=== PATIENT | male | born 1970 | race African-American/Black ===

== ENCOUNTER 2020-03-06 08:13 | Day surgery (SDC) | payer BC, SELFPAY ==
--- NOTE | 2020-03-06 08:28 | CT_ITS ---
EXAMINATION: CT ABDOMEN AND PELVIS WITHOUT CONTRAST CLINICAL INFORMATION: Left flank pain. COMPARISON: Ultrasound abdomen and pelvis 06/09/2017 TECHNIQUE: Multidetector volumetric imaging was performed from the superior aspect of the liver through the pubic symphysis. Sagittal and coronal reformatted images were obtained on the technologist's workstation. This CT examination was performed using dose optimization techniques as appropriate, variously including the following: *Automated exposure control *Adjustment of mA and/or kV according to patient size (this includes techniques or standardized protocols for targeted exams where dose is matched to indication/reason for exam; i.e. extremities or head) *Use of iterative reconstruction technique DLP: 930 mGy-cm FINDINGS: LUNG BASES: The visualized lung bases are unremarkable. LIVER, GALLBLADDER, AND BILIARY TREE: The liver is normal in size, shape, and attenuation. No focal hepatic lesion or biliary ductal dilatation is present. The gallbladder is unremarkable with no evidence of radiopaque gallstones, gallbladder wall thickening, or obvious pericholecystic inflammatory changes. PANCREAS: Unremarkable. SPLEEN: Unremarkable. ADRENAL GLANDS: There is a bilobed right adrenal lesion measuring 2.8 x 1.5 a 2.3 cm and approximately 13 Hounsfield units likely a small cyst. Left adrenal gland is normal. KIDNEYS AND URETERS: The right kidney is normal size, shape and attenuation. There is a 4 mm obstructive radiopaque calculi left proximal ureter with mild hydroureteronephrosis and enlargement of left kidney. There is mild perinephric stranding. No additional radiopaque renal calculi seen. BLADDER: Unremarkable. GASTROINTESTINAL TRACT: There is scattered stool and gas seen throughout the colon without any significant distention. The appendix is normal caliber.. The small bowel loops are normal caliber. Ileocecal junction is normal. ABDOMINAL WALL: No significant hernia is appreciated. LYMPH NODES: Normal. VASCULAR: Unremarkable. PELVIC VISCERA: The prostate gland is normal size. No free fluid seen. No abnormal lymph nodes. OSSEOUS STRUCTURES: Unremarkable. IMPRESSION: 4 mm obstructive radiopaque calculi left proximal ureter with mild hydroureteronephrosis Bilobed cyst right adrenal gland
--- NOTE | 2020-03-06 08:28 | ED.ABDPAIN ---
HPI - Abdominal Pain General Chief Complaint: Abdominal Pain Stated Complaint: abd pain Time Seen by Provider: 03/06/20 08:18 Source: patient Mode of arrival: ambulatory Limitations: no limitations History of Present Illness MD elicited complaint: flank pain Pertinent past history: none Onset (ago): hour(s) (6) Pain Consistency: constant Location: L flank Severity: severe Quality: sharp Radiation: none Migration to: no migration Exacerbating factors: nothing Relieving factors: nothing Associated symptoms: nausea, vomiting and hematuria Related Data Previous Rx's Medication Instructions Recorded hydrocodone-acetaminophen 1 tab PO Q6H 7 Days #28 tab 03/06/20 phenazopyridine [Pyridium] 100 mg PO TID PRN 4 Days #12 tab 03/06/20 tamsulosin 0.4 mg PO BEDTIME #14 cap 03/06/20 Allergies Allergy/AdvReac Type Severity Reaction Status Date / Time doxycycline [DOXYCYCLINE] AdvReac Unknown HEARTBURN Verified 03/06/20 08:32 Review of Systems Review of Systems Constitutional : No Fever, No Chills ENT/Mouth : No sore throat Eyes: No Eye Pain, No Swelling, No Redness Cardiovascular : No Chest Pain, No SOB Respiratory : No Cough, No Sputum, No Wheezing Gastrointestinal : positive Nausea, positive Vomiting, No Diarrhea, positive abdominal pain Genitourinary : no Dysuria, no urinary frequency, positive Hematuria, positive Flank Pain, positive hesitancy Musculoskeletal : No joint pain, No Myalgias Skin : No Skin Lesions, No rash Neuro : No Weakness, No Numbness, No Headache Psych : No Anxiety/Panic, No Depression Heme/Lymph: No Bruising, No Lymphadenopathy Endocrine : No Polyuria, No Polydipsia All other systems reviewed and are negative Physical Exam Vital Signs: Vital Signs: Vital Signs Temp Pulse Resp BP Pulse Ox 03/06/20 14:10 97.2 F 110 H 20 139/78 98 03/06/20 13:58 98.1 F 110 H 18 139/78 99 03/06/20 12:00 88 16 116/75 96 03/06/20 10:00 82 16 110/74 98 03/06/20 08:58 16 03/06/20 08:29 97.5 F 70 20 134/80 99 Body Mass Index 33.3 Appearance: Alert. Oriented X3. mild acute distress. active vomiting Eyes: Pupils equal, round and reactive to light. ENT: Pharynx normal. Neck: Normal inspection. Neck supple. CVS: Normal heart rate and rhythm. Pulses normal. Respiratory: No respiratory distress. Breath sounds normal. Abdomen: Soft and nontender. Skin: Skin warm and diaphoretic. Normal skin color. Normal skin turgor. Extremities: No lower extremity edema. No calf ttp Neuro: Oriented X 3. No motor deficit. No sensory deficit. Course Reevaluation(s) Reevaluation #1: given repeat morphine/zofran, will call Dr. Leal given pain and vomiting, steroids and flomax also given previously Reevaluation #2: to be admitted to Urology for stent MDM - Abdominal Pain MDM Narrative Medical decision making narrative: 49 yo male with L flank pain and dark urine, abdomen is benign he is vomiting, no PMH or surgeries will need labs, IV zofran/morphine for pain and vomiting, UA and CT scan for renal colic dispo per results and findings Differential Diagnosis Differential diagnosis: Likely abdominal pain and calculus of kidney; Unlikely aortic dissection and mesenteric ischemia Lab Data Result diagrams: 03/06/20 08:50 03/06/20 08:50 Labs: Lab Results 03/06/20 03/06/20 03/06/20 Range/Units 08:50 08:50 08:50 WBC 9.0 (4.8-10.8) X10*3/uL RBC 5.29 (4.60-5.80) X10*6/uL Hgb 15.6 (14.0-18.0) g/dl Hct 47.0 (42-52) % MCV 88.8 (80-98) fL MCH 29.5 (27.0-33.0) pg MCHC 33.2 (31.0-36.0) g/dl RDW 12.5 (11.0-16.0) % Plt Count 238 (160-400) X10*3/uL MPV 9.3 L (9.4-12.4) fL Immature Gran % (Auto) 0.3 (0.0-0.4) % Neut % (Auto) 65.5 (45-73) % Lymph % (Auto) 27.4 (20-40) % [place] % (Auto) 5.7 (2-11) % Eos % (Auto) 0.9 (0-4) % Baso % (Auto) 0.2 (0-2) % Lymph # (Auto) 2.5 (1.2-4.9) X10*3/uL [place] # (Auto) 0.5 (0.1-1.2) X10*3/uL Eos # (Auto) 0.1 (0.0-0.4) X10*3/uL Baso # (Auto) 0.0 (0.0-0.2) X10*3/uL Abs Immat Gran (auto) 0.03 (0.00-0.03) X10*3/uL Absolute Neuts (auto) 5.9 (2.0-8.3) X10*3/uL Absolute Nucleated RBC 0.000 (0.0-0.012) X10*3/uL Nucleated RBC % (auto) 0.0 (0.0-0.2) /100WBC Hold Blue Top SEE NOTE Sodium 140 (135-145) mmol/L Potassium 4.6 (3.3-5.1) mmol/l Chloride 107 (96-108) mmol/L Carbon Dioxide 26 (22-29) mmol/L Anion Gap 12 (12-20) BUN 18 H (9-16) mg/dL Creatinine 1.02 (0.5-1.4) mg/dL Estim Creat Clear Calc 110.9 Estimated GFR > 60 Random Glucose 117 H (60-115) mg/dL Calcium 8.8 (8.4-10.2) mg/dL Magnesium 2.0 (1.6-2.6) mg/dL Total Bilirubin 0.6 (0.0-1.0) mg/dL Direct Bilirubin 0.3 (0.0-0.5) mg/dL AST 24 (5-37) U/L ALT 23 (0-40) U/L Alkaline Phosphatase 56 (39-117) U/L Total Protein 7.6 (6.5-8.0) g/dL Albumin 4.4 (3.5-5.0) g/dL Urine Color Urine Appearance Urine pH (5.0-8.0) Ur Specific [place] (1.005-1.025) Urine Protein (NEG-TRACE) MG/DL Urine Glucose (UA) (NEG) MG/DL Urine Ketones (NEG) MG/DL Urine Blood (NEG) Urine Nitrite (NEG) Ur Leukocyte Esterase (NEG) Urine RBC (0) /HPF Urine WBC (0-4) /HPF Ur Squamous Epith Cells /LPF Amorphous Sediment /LPF Urine Bacteria /LPF Coronavirus (PCR) (Negative) 03/06/20 03/06/20 Range/Units 09:01 13:07 WBC (4.8-10.8) X10*3/uL RBC (4.60-5.80) X10*6/uL Hgb (14.0-18.0) g/dl Hct (42-52) % MCV (80-98) fL MCH (27.0-33.0) pg MCHC (31.0-36.0) g/dl RDW (11.0-16.0) % Plt Count (160-400) X10*3/uL MPV (9.4-12.4) fL Immature Gran % (Auto) (0.0-0.4) % Neut % (Auto) (45-73) % Lymph % (Auto) (20-40) % [place] % (Auto) (2-11) % Eos % (Auto) (0-4) % Baso % (Auto) (0-2) % Lymph # (Auto) (1.2-4.9) X10*3/uL [place] # (Auto) (0.1-1.2) X10*3/uL Eos # (Auto) (0.0-0.4) X10*3/uL Baso # (Auto) (0.0-0.2) X10*3/uL Abs Immat Gran (auto) (0.00-0.03) X10*3/uL Absolute Neuts (auto) (2.0-8.3) X10*3/uL Absolute Nucleated RBC (0.0-0.012) X10*3/uL Nucleated RBC % (auto) (0.0-0.2) /100WBC Hold Blue Top Sodium (135-145) mmol/L Potassium (3.3-5.1) mmol/l Chloride (96-108) mmol/L Carbon Dioxide (22-29) mmol/L Anion Gap (12-20) BUN (9-16) mg/dL Creatinine (0.5-1.4) mg/dL Estim Creat Clear Calc Estimated GFR Random Glucose (60-115) mg/dL Calcium (8.4-10.2) mg/dL Magnesium (1.6-2.6) mg/dL Total Bilirubin (0.0-1.0) mg/dL Direct Bilirubin (0.0-0.5) mg/dL AST (5-37) U/L ALT (0-40) U/L Alkaline Phosphatase (39-117) U/L Total Protein (6.5-8.0) g/dL Albumin (3.5-5.0) g/dL Urine Color DARK YELLOW Urine Appearance HAZY Urine pH 7.0 (5.0-8.0) Ur Specific [place] 1.020 (1.005-1.025) Urine Protein TRACE (NEG-TRACE) MG/DL Urine Glucose (UA) NEG (NEG) MG/DL Urine Ketones NEG (NEG) MG/DL Urine Blood 3+ H (NEG) Urine Nitrite NEG (NEG) Ur Leukocyte Esterase NEG (NEG) Urine RBC TNTC H (0) /HPF Urine WBC 0 (0-4) /HPF Ur Squamous Epith Cells TRACE /LPF Amorphous Sediment TRACE /LPF Urine Bacteria NONE /LPF Coronavirus (PCR) NEGATIVE (Negative) Critical Care Time Critical Care Time Critical Care Time: Yes Total Critical Care Time: 35 Attestation: repeat IV pain medications, repeat IV antiemetics, consult to Urology I personally attest to this time spent taking care of the patient Discharge Plan Discharge Clinical Impression: Ureterolithiasis Vomiting Qualifiers: Vomiting type: unspecified Vomiting Intractability: intractable Nausea presence: with nausea Qualified Code(s): R11.2 - Nausea with vomiting, unspecified Patient Disposition: Admitted as Observation Interventions: Admission Worksheet (ED) Last Done: 03/06/20 14:06 Discharge Date/Time: 03/06/20 13:55 [facility] Past Medical History Medical History (Updated 03/06/20 @ 14:49 by Jim Leal MD) Ureterolithiasis Social History Social History Smoking Status: Never smoker
[2020-03-06 08:29] VITALS: BP 134/80; PULSE 70; RESP 20; TEMP 36.4; O2SAT 99; BMI 33.3
[2020-03-06 08:55] LABS: MANUAL DIFF FLAG NO
[2020-03-06] MEDS: 0.9 % Sodium Chloride 1,000 ML 999 ML IVCONT ×2 (08:57→10:58)
[2020-03-06] MEDS: ondansetron HCL 4 MG/2 ML VIAL IVPUSH ×2 (08:57→11:00)
[2020-03-06 08:58] VITALS: RESP 16
[2020-03-06] MEDS: Morphine Sulfate 4 MG/ML CARTRIDGE IVPUSH ×2 (08:58→11:02)
[2020-03-06 09:03] LABS: Basophils Percent Auto 0.2 % (0-2); Eosinophils Absolute Auto 0.1 X10*3/uL (0.0-0.4); Eosinophils Percent Auto 0.9 % (0-4); Hemoglobin 15.6 g/dl (14.0-18.0); Imm Gran Abs Auto 0.03 X10*3/uL (0.00-0.03); Imm Gran Pct Auto 0.3 % (0.0-0.4); Lymphocytes Absolute Auto 2.5 X10*3/uL (1.2-4.9); Lymphocytes Percent Auto 27.4 % (20-40); Mean Corpuscular HGB Conc 33.2 g/dl (31.0-36.0); Mean Corpuscular Hemoglobin 29.5 pg (27.0-33.0); Mean Corpuscular Volume 88.8 fL (80-98); Mean Platelet Volume 9.3 fL (9.4-12.4); Monocytes Absolute Auto 0.5 X10*3/uL (0.1-1.2); Monocytes Percent Auto 5.7 % (2-11); Neutrophils Absolute Auto 5.9 X10*3/uL (2.0-8.3); Neutrophils Percent Auto 65.5 % (45-73); Platelet Count 238 X10*3/uL (160-400); Red Blood Count 5.29 X10*6/uL (4.60-5.80); Red Cell Distribution Width 12.5 % (11.0-16.0)
[2020-03-06 09:31] LABS: Alanine Aminotransferase 23 U/L (0-40); Albumin Level 4.4 g/dL (3.5-5.0); Alkaline Phosphatase 56 U/L (39-117); Anion Gap 12 (12-20); Aspartate Amino Transferase 24 U/L (5-37); Bilirubin Direct 0.3 mg/dL (0.0-0.5); Bilirubin Total 0.6 mg/dL (0.0-1.0); Blood Urea Nitrogen 18 mg/dL (9-16); Calcium 8.8 mg/dL (8.4-10.2); Carbon Dioxide 26 mmol/L (22-29); Chloride 107 mmol/L (96-108); Creatinine Clr Calc Pharmacy 110.9; Estimated Glomerular Filt Rate > 60; Glucose Random 117 mg/dL (60-115); Potassium 4.6 mmol/l (3.3-5.1); Sodium 140 mmol/L (135-145); Total Protein 7.6 g/dL (6.5-8.0)
[2020-03-06 10:00] VITALS: BP 110/74; PULSE 82; RESP 16; O2SAT 98
[2020-03-06 10:05] LABS: Glucose Urine UA NEG (NEG); Leukocyte Esterase Urine NEG (NEG); Nitrite Urine NEG (NEG); Urine Blood 3+ (NEG); Urine Ketones NEG (NEG); Urine Protein TRACE MG/DL (NEG-TRACE)
[2020-03-06 10:11] LABS: Appearance Urine HAZY; Color Urine DARK YELLOW
[2020-03-06] MEDS: Tamsulosin HCL 0.4 MG CAPSULE PO (10:12)
[2020-03-06] MEDS: methylPREDNISolone Sod Succ/PF 125 MG/2 ML VIAL 60 MG IVPUSH (10:12)
[2020-03-06 11:00] LABS: RBC Urine TNTC /HPF (0); Squamous Epithelial Cell Urine TRACE /LPF; WBC Urine 0 /HPF (0-4)
[2020-03-06 11:01] LABS: Amorphous Sediment Urine TRACE /LPF
[2020-03-06] MEDS: Ketorolac Tromethamine 30 MG/ML VIAL IVPUSH (11:01)
--- NOTE | 2020-03-06 11:02 | PC.NURSE ---
Pain increased and acutely vomiting since prior assessment, medicated as charted.
[2020-03-06 12:00] VITALS: BP 116/75; PULSE 88; RESP 16; O2SAT 96
--- NOTE | 2020-03-06 12:34 | FL_ITS ---
EXAMINATION: XR FLUOROSCOPY CLINICAL INFORMATION: Left ureteral stent placement. Left ureteral stone. COMPARISON: Previous CT of the abdomen and pelvis from earlier the same day TECHNIQUE: Fluoroscopic guidance was provided for left internal ureteral stent placement FINDINGS: There is mild left hydronephrosis. There is a left internal ureteral stent in satisfactory position. FLUOROSCOPY TIME: 30 seconds Cumulative dose 20 mgy. 4 submitted fluoroscopic images. IMPRESSION: Fluoroscopic guidance for left ureteral stent placement.
--- NOTE | 2020-03-06 13:09 | PC.NURSE ---
Report given to Short Stay, pt to be swabbed for Covid and will be transferred [facility] [place] [facility] in short stay prep
--- NOTE | 2020-03-06 13:38 | HO.ANESPROP2 ---
HPI - Anesthesia Eval Consult details Narrative: previously healthy 49 M pf stent placement PMFSH Past Medical History Medical History (Updated 03/06/20 @ 13:39 by Sandip Lawrence MD) Ureterolithiasis Social History Social History Smoking Status: Never smoker Use of substances other than those prescribed or required for medical reasons: No Advance Directives: No Advance Directives Information Provided: No Meds Allergies Allergy/AdvReac Type Severity Reaction Status Date / Time doxycycline [DOXYCYCLINE] AdvReac Unknown HEARTBURN Verified 03/06/20 08:32 Exam Exam Date and Time: March 06, 2020 1338 Height,Weight and Vital Signs: Height 5 ft 11 in Weight 108.409 kg Last Vital Signs Temp 97.5 F 03/06/20 08:29 Pulse 88 03/06/20 12:00 Resp 16 03/06/20 12:00 BP 116/75 03/06/20 12:00 Pulse Ox 96 03/06/20 12:00 Pertinent Lab Results Pertinent Lab Results: Laboratory Tests 03/06/20 03/06/20 03/06/20 08:50 08:50 08:50 WBC 9.0 RBC 5.29 Hgb 15.6 Hct 47.0 MCV 88.8 MCH 29.5 MCHC 33.2 RDW 12.5 Plt Count 238 MPV 9.3 L Immature Gran % (Auto) 0.3 Neut % (Auto) 65.5 Lymph % (Auto) 27.4 [place] % (Auto) 5.7 Eos % (Auto) 0.9 Baso % (Auto) 0.2 Lymph # (Auto) 2.5 [place] # (Auto) 0.5 Eos # (Auto) 0.1 Baso # (Auto) 0.0 Abs Immat Gran (auto) 0.03 Absolute Neuts (auto) 5.9 Absolute Nucleated RBC 0.000 Nucleated RBC % (auto) 0.0 Hold Blue Top SEE NOTE Sodium 140 Potassium 4.6 Chloride 107 Carbon Dioxide 26 Anion Gap 12 BUN 18 H Creatinine 1.02 Estim Creat Clear Calc 110.9 Estimated GFR > 60 Random Glucose 117 H Calcium 8.8 Magnesium 2.0 Total Bilirubin 0.6 Direct Bilirubin 0.3 AST 24 ALT 23 Alkaline Phosphatase 56 Total Protein 7.6 Albumin 4.4 Urine Color Urine Appearance Urine pH Ur Specific Rule Urine Protein Urine Glucose (UA) Urine Ketones Urine Blood Urine Nitrite Ur Leukocyte Esterase Urine RBC Urine WBC Ur Squamous Epith Cells Amorphous Sediment Urine Bacteria 03/06/20 09:01 WBC RBC Hgb Hct MCV MCH MCHC RDW Plt Count MPV Immature Gran % (Auto) Neut % (Auto) Lymph % (Auto) [place] % (Auto) Eos % (Auto) Baso % (Auto) Lymph # (Auto) [place] # (Auto) Eos # (Auto) Baso # (Auto) Abs Immat Gran (auto) Absolute Neuts (auto) Absolute Nucleated RBC Nucleated RBC % (auto) Hold Blue Top Sodium Potassium Chloride Carbon Dioxide Anion Gap BUN Creatinine Estim Creat Clear Calc Estimated GFR Random Glucose Calcium Magnesium Total Bilirubin Direct Bilirubin AST ALT Alkaline Phosphatase Total Protein Albumin Urine Color DARK YELLOW Urine Appearance HAZY Urine pH 7.0 Ur Specific Rule 1.020 Urine Protein TRACE Urine Glucose (UA) NEG Urine Ketones NEG Urine Blood 3+ H Urine Nitrite NEG Ur Leukocyte Esterase NEG Urine RBC TNTC H Urine WBC 0 Ur Squamous Epith Cells TRACE Amorphous Sediment TRACE Urine Bacteria NONE Airway Mallampati Class: II TM Dist: >3cm Neck ROM: Full Loose/Missing/Broken Teeth: No Heart: rrr Lungs: nl Other: ao3 Assessment and Plan Assessment Anesthesia Assessment: Anesthesia Plan Discussed and Chart Reviewed Final Anesthetic Review NPO: Yes ASA Class: II Final Preanesthetic Review: No Changes in Pt Med Stat, Meds/Allgs Chart Reviewed, Consent Obtained/Reviewed and Anes Risks/Benef Reviewed Patient Risk: Low Procedure Risk: Intermediate Anesthetic Plan Anesthetic Plan: MAC: Disposition: Standard PACU
[2020-03-06] MEDS: levoFLOXacin 500 MG TABLET PO (13:56)
[2020-03-06 13:58] VITALS: BP 139/78; PULSE 110; RESP 18; TEMP 36.7; O2SAT 99
--- NOTE | 2020-03-06 14:03 | MHC.SHP ---
Pre-Procedural Eval Section A The patient is an INPATIENT: No Changes since office visit: No Cold of Flu in the past 2 weeks, No New Medical Problems, No Changes in Medication and No Patient answered all questions The History & Physical has been completed within 30 days and I have reviewed it.: Yes Section B Chief Complaint: abd pain Allergies: Allergies Allergy/AdvReac Type Severity Reaction Status Date / Time doxycycline [DOXYCYCLINE] AdvReac Unknown HEARTBURN Verified 03/06/20 08:32 Plan Patient has been examined and remains a candidate for the planned procedure
[2020-03-06 14:10] VITALS: BP 139/78; PULSE 110; RESP 20; TEMP 36.2; O2SAT 98
[2020-03-06 14:32] LABS: SARS COV2 PCR INHOUSE NEGATIVE (Negative)
--- NOTE | 2020-03-06 14:52 | PM.OP ---
Brief Operative Note Date of procedure: 03/06/20 Pre-op diagnosis: left ureteric stone Post-op diagnosis: same Procedure: Left retrograde, left stent placement Implants: 6x26 cm stent Surgeon: Jim Leal MD Anesthesia: MAC Estimated blood loss (mL): 0 Pathology: none sent Condition: stable Disposition: same day
--- NOTE | 2020-03-06 15:01 | W.PM.OPN ---
Operative Note Operative Note Narrative: PreOperative Diagnosis<del>:</del> Left mid ureteric stone with hydronephrosis Post Operative Diagnosis: left mid ureteric stone with hydronephrosis Procedure: left retrograde and stent placement Surgeron: Dr Jim Leal Anesthesia: mac Indications for procedure: this is a 49-year-old male. Admitted through emergency department. Had left-sided flank pain with nausea and persistent vomiting last night into today. CT scan with 4 mm mid ureteric stone and mild hydronephrosis. Was admitted and will have procedure based on pain and nausea control Procedure: after informed consent was verified patient was brought to the operating room placed in a supine position. Anesthesia was administered per protocol. Patient was placed in modified dorsal Lithotomy position and prepped and draped in a sterile fashion. Safety pause time-out was performed. Antibiotics being given. 21 [place] cystoscope was inserted per urethra. No abnormalities noted of anterior posterior urethra. Mild to moderate median lobe. This made reviewing of ureteric orifices well complicated. Right ureteric orifice seen. Line of the trigone followed for left ureteric orifice. ureteric orifice cannulation with angled Glidewire. Ureteric catheter advanced. Retrograde examination performed. No filling defects seen. Catheter removed. Six [place]ian by 26 cm double-J ureteric stent placed. Good coil seen in renal pelvis and bladder. This was a staged procedure. Definitive stone treatment will be deferred until improvement with pain relief and nausea. Tolerated the procedure well was extubated in operating room transferred in stable condition to the recovery area. Drains. Six [place]ian by 26 cm stent as dictated above This is the end of the dictation by Dr. Jim Leal
== END 2020-03-06 16:03 | disposition home or self-care (01) ==
LOC: HO.ED 12:07 → HO.SSS 12:08
PROVIDERS: Physician Assistant; Emergency Provider Emergency Medicine; PCP Internal Medicine; Visit Provider Urology
PROC: (CPT 52332; principal; 2020-03-06 13:00)
DX: N20.1 Calculus of ureter (principal); Z88.1 Allergy status to other antibiotic agents
CPT/HCPCS: 52332; 36415; 74176; 80048; 80076; 81001; 81003; 83735; 85025; 87635; 96361; 96374; 96375; 96376; 99284; 99291; C1758; C1769; C2617; J1885; J2270; J2405; J2930; J3010; Q9967

== ENCOUNTER 2020-03-20 07:48 | Day surgery (SDC) | payer BC, SELFPAY ==
[2020-03-13 21:12] VITALS: BMI 33.0
--- NOTE | 2020-03-17 12:14 | HO.ANESPROP2 ---
Documented by User: Marissa Pleitez 03/17/20 12:16 HPI - Anesthesia Eval Consult details Narrative: 49yo M for Cystoscopy, Ureteroroscopy, Retro, Laser, Rigid Basket, Stent Placement s/p cysto, stent placement 03/06/20 with [facility] Past Medical History Medical History PONV (postoperative nausea and vomiting) Ureterolithiasis Social History Social History Smoking Status: Never smoker Meds Allergies Allergy/AdvReac Type Severity Reaction Status Date / Time doxycycline [DOXYCYCLINE] AdvReac Unknown HEARTBURN Verified 03/13/20 21:16 Exam Exam Date and Time: March 17, 2020 1214 Height,Weight and Vital Signs: Height 5 ft 11 in Weight 107.501 kg Assessment and Plan Assessment Anesthesia Assessment: Chart Reviewed Documented by User: France Sanchez 03/20/20 07:28 ON LICENSE OF [facility] Past Medical History Medical History PONV (postoperative nausea and vomiting) Ureterolithiasis Social History Social History Smoking Status: Never smoker Meds Allergies Allergy/AdvReac Type Severity Reaction Status Date / Time doxycycline [DOXYCYCLINE] AdvReac Unknown HEARTBURN Verified 03/13/20 21:16
[2020-03-20] MEDS: levoFLOXacin 500 MG TABLET PO (10:03)
[2020-03-20 10:05] VITALS: BP 121/84; PULSE 83; RESP 16; TEMP 36.7; O2SAT 98
[2020-03-20] MEDS: Lactated Ringers 1,000 ML 100 ML IVCONT (10:05)
--- NOTE | 2020-03-20 10:13 | FL_ITS ---
EXAMINATION: XR FLUOROSCOPY WITH IMAGES CLINICAL INFORMATION: Cystoscopy retrograde exam and stent placement COMPARISON: Previous fluoroscopy exam and CT 03/06/2020 TECHNIQUE: Fluoroscopy performed by Dr. Jim Leal. Fluoroscopy time: 23 seconds DAP: 13 mGycm2 Images: 1 FINDINGS: Single submitted image demonstrates a ureteral stent or catheter projecting over the left renal collecting system and proximal ureter. FL/FL guidance in OR IMPRESSION: Fluoroscopic guidance for cystoscopy, left retrograde exam and stent placement.
--- NOTE | 2020-03-20 10:18 | MHC.SHP ---
Pre-Procedural Eval Section A The patient is an INPATIENT: No Changes since office visit: No Cold of Flu in the past 2 weeks, No New Medical Problems, No Changes in Medication and No Patient answered all questions The History & Physical has been completed within 30 days and I have reviewed it.: Yes Section B Chief Complaint: Uretreal Stone,Hydronephrosis Allergies: Allergies Allergy/AdvReac Type Severity Reaction Status Date / Time doxycycline [DOXYCYCLINE] AdvReac Unknown HEARTBURN Verified 03/13/20 21:16 Plan Patient has been examined and remains a candidate for the planned procedure
[2020-03-20 11:10] VITALS: BP 106/66; PULSE 85; RESP 16; TEMP 36.1; O2SAT 95
--- NOTE | 2020-03-20 11:10 | PM.OP ---
Brief Operative Note Date of procedure: 03/20/20 Pre-op diagnosis: Left ureteric stone Post-op diagnosis: same Procedure: stent removal retrograde left ureteroscopy Implants: none Surgeon: Jim eLal MD Anesthesia: GLMA Estimated blood loss (mL): 0 Pathology: none sent Condition: stable Disposition: same day
--- NOTE | 2020-03-20 11:11 | W.PM.OPN ---
Operative Note Operative Note Narrative: PreOperative Diagnosis: left ureteric stone Post Operative Diagnosis:stone passed Procedure: left side - cystoscopy, retrograde, stent removal - dilatation of ureteric orifice under fluoroscopy - ureteroscopy Surgeon: Dr Jim Leal Anesthesia: General Indications for procedure: STent placed from ER admission Procedure: After informed consent was verified patient was brought to the operating placed in supine position. Anesthesia was administered per protocol. Patient was placed in modified dorsal lithotomy position and prepped and draped in a sterile fashion. Safety pause time-out and side of surgery confirmed. Antibiotics confirmed. Cystoscopy per urethra STent in place on left Retrograde performed - NAD Wire placed Stent removed Sheath placed USr placed Kidney examined in entirity No stones seen USR slowly removed No stone in ureter Bladder emptied Tolerated procedure Transfer to Same Day
[2020-03-20 11:15] VITALS: BP 128/66; PULSE 88; RESP 18; O2SAT 96
[2020-03-20 11:20] VITALS: BP 112/79; PULSE 84; RESP 16; O2SAT 98
[2020-03-20 11:25] VITALS: BP 127/85; PULSE 81; RESP 18; O2SAT 98
[2020-03-20 11:35] VITALS: BP 123/84; PULSE 86; RESP 16; TEMP 36.1; O2SAT 99
== END 2020-03-20 12:00 | disposition home or self-care (01) ==
PROVIDERS: PCP Internal Medicine; Visit Provider Urology
PROC: (CPT 52310; principal; 2020-03-20 09:30)
DX: Z46.6 Encounter for fitting and adjustment of urinary device (principal); Z96.0 Presence of urogenital implants; Z87.442 Personal history of urinary calculi; Z88.1 Allergy status to other antibiotic agents; Z79.899 Other long term (current) drug therapy
CPT/HCPCS: 52310; C1769; C1894; J1100; J1885; J2250; J2405; J3010; Q9967

== ENCOUNTER 2020-05-25 07:24 | Outpatient (REF) | payer OTHER, SELFPAY | END 2020-05-25 07:25 | disposition home or self-care (01) | LOC: HO.LAB 07:24 | PROVIDERS: PCP Internal Medicine; Visit Provider Internal Medicine | DX: Z20.828 Contact with and (suspected) exposure to other viral communicable diseases (principal) | CPT/HCPCS: 36415; C9803; U0003 ==

== ENCOUNTER 2021-10-02 16:18 | Outpatient (REF) | payer OTHER, SELFPAY ==
[2021-10-02 16:28] LABS: MANUAL DIFF FLAG NO
[2021-10-02 16:56] LABS: Basophils Percent Auto 0.4 % (0-2); Eosinophils Absolute Auto 0.2 X10*3/uL (0.0-0.4); Eosinophils Percent Auto 2.5 % (0-4); Hematocrit 45.3 % (42.0-52.0); Hemoglobin 14.8 g/dl (14.0-18.0); Imm Gran Abs Auto 0.02 X10*3/uL (0.00-0.03); Imm Gran Pct Auto 0.2 % (0.0-0.4); Lymphocytes Absolute Auto 2.9 X10*3/uL (1.2-4.9); Lymphocytes Percent Auto 34.8 % (20-40); Mean Corpuscular HGB Conc 32.7 g/dl (31.0-36.0); Mean Corpuscular Hemoglobin 29.1 pg (27.0-33.0); Mean Platelet Volume 9.9 fL (9.4-12.4); Monocytes Absolute Auto 0.6 X10*3/uL (0.1-1.2); Monocytes Percent Auto 7.4 % (2-11); Neutrophils Absolute Auto 4.6 x10*3/uL (2.0-8.3); Neutrophils Percent Auto 54.7 % (45-73); Platelet Count 248 X10*3/uL (160-400); Red Blood Count 5.09 X10*6/uL (4.60-5.80); Red Cell Distribution Width 13.2 % (11.0-16.0); White Blood Count 8.4 X10*3/uL (4.8-10.8)
[2021-10-02 17:18] LABS: Alanine Aminotransferase 21 U/L (0-40); Albumin Level 4.4 g/dL (3.5-5.0); Alkaline Phosphatase 63 U/L (39-117); Anion Gap 11 (12-20); Aspartate Amino Transferase 23 U/L (5-37); Blood Urea Nitrogen 23 mg/dL (9-16); Calcium 9.8 mg/dL (8.4-10.2); Carbon Dioxide 24 mmol/L (22-29); Chloride 108 mmol/L (96-108); Cholesterol 221 mg/dL; Estimated Glomerular Filt Rate > 60; Glucose Random 96 mg/dL (60-115); HDL Cholesterol 55 mg/dL; LDL Cholesterol Calculated 145 mg/dl; Potassium 4.6 mmol/L (3.3-5.1); Sodium 138 mmol/L (135-145); Total Protein 7.9 g/dL (6.5-8.0); Triglycerides 107 mg/dL
[2021-10-05 09:30] LABS: TS Negative Control Passed; TS Panel A 0; TS Panel B 0; TS Positive Control Passed; TSpotTB Negative (Negative)
== END 2021-10-02 16:19 | disposition home or self-care (01) ==
LOC: HO.LAB 16:18
PROVIDERS: PCP Internal Medicine; Visit Provider Internal Medicine
DX: Z00.00 Encounter for general adult medical examination without abnormal findings (principal); Z11.1 Encounter for screening for respiratory tuberculosis; Z13.31 Encounter for screening for depression; E78.1 Pure hyperglyceridemia; E66.8 Other obesity
CPT/HCPCS: 36415; 80053; 80061; 85025; 86481

== ENCOUNTER 2022-01-30 12:00 | Outpatient (REF) | payer OTHER, SELFPAY ==
[2022-01-30 13:09] LABS: Alanine Aminotransferase 22 U/L (0-40); Albumin Level 4.4 g/dL (3.5-5.0); Alkaline Phosphatase 65 U/L (39-117); Anion Gap 11 (12-20); Aspartate Amino Transferase 22 U/L (5-37); Bilirubin Total 1.1 mg/dL (0.0-1.0); Blood Urea Nitrogen 20 mg/dL (9-16); Calcium 9.5 mg/dL (8.4-10.2); Carbon Dioxide 28 mmol/L (22-29); Chloride 105 mmol/L (96-108); Cholesterol 215 mg/dL; Estimated Glomerular Filt Rate > 60; Glucose Random 99 mg/dL (60-115); HDL Cholesterol 54 mg/dL; LDL Cholesterol Calculated 147 mg/dl; Potassium 4.4 mmol/L (3.3-5.1); Sodium 140 mmol/L (135-145); Total Protein 7.7 g/dL (6.5-8.0); Triglycerides 74 mg/dL
[2022-01-30 13:30] LABS: Prostate Specific Antigen 0.63 ng/mL (<0.05-4.0)
== END 2022-01-30 12:01 | disposition home or self-care (01) ==
LOC: HO.LAB 12:00
PROVIDERS: PCP Internal Medicine; Visit Provider Internal Medicine
DX: Z00.00 Encounter for general adult medical examination without abnormal findings (principal); E78.00 Pure hypercholesterolemia, unspecified; N32.81 Overactive bladder; Z80.42 Family history of malignant neoplasm of prostate; Z12.5 Encounter for screening for malignant neoplasm of prostate
CPT/HCPCS: 36415; 80053; 80061; 84153

== ENCOUNTER 2022-05-27 14:02 | Outpatient (REF) | payer OTHER, SELFPAY ==
[2022-05-27 15:46] LABS: Prostate Specific Antigen 0.61 ng/mL (<0.05-4.0)
== END 2022-05-27 14:03 | disposition home or self-care (01) ==
LOC: HO.LAB 14:02
PROVIDERS: PCP Internal Medicine; Visit Provider Urology
DX: Z12.5 Encounter for screening for malignant neoplasm of prostate (principal); Z85.46 Personal history of malignant neoplasm of prostate
CPT/HCPCS: 36415; 84153

== ENCOUNTER → 2022-05-31 13:40 | Outpatient (BNVA) | payer OTHER, SELFPAY | PROVIDERS: PCP Internal Medicine; Visit Provider Urology | DX: Z85.46 Personal history of malignant neoplasm of prostate (principal); R39.12 Poor urinary stream; R35.1 Nocturia; R39.15 Urgency of urination | CPT/HCPCS: 51798 ==

== ENCOUNTER 2022-06-06 12:52 | Outpatient (REF) | payer OTHER, SELFPAY ==
--- NOTE | ~2022-06-06 | US_ITS ---
EXAMINATION: US PELVIS LIMITED (BLADDER) CLINICAL INFORMATION: Nocturia. COMPARISON: CT abdomen and pelvis without contrast 03/06/2020. Ultrasound abdomen complete 06/09/2017. TECHNIQUE: Real-time imaging of the bladder. FINDINGS: BLADDER: Well distended and normal. Bilateral ureteral jets are demonstrated. Prevoid bladder volume is 449.8 mL. Postvoid bladder volume is 322.8 mL. ADDITIONAL FINDINGS: Enlarged prostate protruding into the bladder base. Prostate volume is 65.5 mL. US/US bladder IMPRESSION: High post void urine volume of 323 mL. Prostatomegaly, prostate is protruding into the bladder base.
== END 2022-06-06 12:53 | disposition home or self-care (01) ==
LOC: HO.US 12:52
PROVIDERS: PCP Internal Medicine; Visit Provider Urology
DX: R35.1 Nocturia (principal)
CPT/HCPCS: 76857

== ENCOUNTER → 2022-07-30 13:46 | Outpatient (BNVA) | payer OTHER, SELFPAY | PROVIDERS: PCP Internal Medicine; Visit Provider Urology | DX: N40.1 Benign prostatic hyperplasia with lower urinary tract symptoms (principal); N13.8 Other obstructive and reflux uropathy; R39.12 Poor urinary stream; R35.1 Nocturia | CPT/HCPCS: 52000 ==

== ENCOUNTER 2022-09-23 07:13 | Day surgery (SDC) | payer OTHER, SELFPAY ==
[2022-09-18 10:38] VITALS: BMI 34.2
--- NOTE | 2022-09-20 10:59 | HO.ANESPROP2 ---
Documented by User: Marissa Pleitez NP 09/20/22 11:00 HPI - Anesthesia Eval Consult details Narrative: 52yo M for Laser Ablation Prostate w/Green Light PMFSH Active Problems Active Problems: All Active Problems (Updated 09/18/22 @ 10:31 by Lauren Alamo RN) Ureteric stone (Acute) Urinary urgency (Acute) Nocturia more than twice per night (Acute) Weak urinary stream (Acute) BPH w urinary obs/LUTS (Acute) Past Medical History Medical History (Updated 09/23/22 @ 07:23 by Marni Nuñez) COVID-19 History of prostate cancer Ureterolithiasis Surgical History Surgical History (Updated 09/23/22 @ 07:22 by Marni Nuñez) History of lithotripsy Social History Social History Are you a primary critical care specialist to a significant other at home: Yes Do you presently have visiting nurse or other home services: No Patient Tobacco Use Status: Never used Tobacco Meds Allergies Allergy/AdvReac Type Severity Reaction Status Date / Time doxycycline [DOXYCYCLINE] AdvReac Intermediate HEARTBURN Verified 09/23/22 07:17 Home Medications Medication Instructions Recorded Confirmed Last Taken Type atorvastatin 20 mg tablet 20 mg PO BEDTIME 09/18/22 09/23/22 Unknown History finasteride 5 mg tablet 5 mg PO BEDTIME 09/18/22 09/23/22 Unknown History Exam Exam Date and Time: September 20, 2022 1059 Height,Weight and Vital Signs: Height 5 ft 11 in Weight 111.13 kg Assessment and Plan Assessment Anesthesia Assessment: Chart Reviewed Documented by User: Allen Llanos MD 09/23/22 18:15 PMFSH Past Medical History Medical History (Updated 09/23/22 @ 07:23 by Marni Nuñez) COVID-19 History of prostate cancer Ureterolithiasis Functional capacity: independent ambulation Family History Family history of problems with anesthesia: No Surgical History Surgical History (Updated 09/23/22 @ 07:22 by Marni Nuñez) History of lithotripsy History of Problems with Anesthesia: No Social History Social History Are you a primary critical care specialist to a significant other at home: Yes Do you presently have visiting nurse or other home services: No Patient Tobacco Use Status: Never used Tobacco Meds Allergies Allergy/AdvReac Type Severity Reaction Status Date / Time doxycycline [DOXYCYCLINE] AdvReac Intermediate HEARTBURN Verified 09/23/22 07:17 Home Medications Medication Instructions Recorded Confirmed Last Taken Type atorvastatin 20 mg tablet 20 mg PO BEDTIME 09/18/22 09/23/22 Unknown History finasteride 5 mg tablet 5 mg PO BEDTIME 09/18/22 09/23/22 Unknown History Exam Airway Mallampati Class: IV TM Dist: >3cm Neck ROM: Full Loose/Missing/Broken Teeth: Yes Assessment and Plan Assessment Anesthesia Assessment: Anesthesia Plan Discussed Final Anesthetic Review Family History of Problems with Anesthesia: No History of Problems with Anesthesia: No NPO: Yes ASA Class: II Final Preanesthetic Review: Meds/Allgs Chart Reviewed, Consent Obtained/Reviewed and Anes Risks/Benef Reviewed Patient Risk: Intermediate Procedure Risk: Intermediate Anesthetic Plan Anesthetic Plan: GA and Agree w/ Assess. and Plan Disposition: Standard PACU
[2022-09-23] VITALS (8 sets, daily range): BP systolic 118–138; BP diastolic 72–86; PULSE 72–91; RESP 16–18; TEMP 36.2–36.7; O2SAT 96–99
[2022-09-23] MEDS: Lactated Ringers 1,000 ML 100 ML IVCONT (07:40)
--- NOTE | 2022-09-23 08:46 | MHC.SHP ---
Pre-Procedural Eval Section A Date of Service: 09/23/22 The patient is an INPATIENT: No Changes since office visit: No Cold of Flu in the past 2 weeks, No New Medical Problems, No Changes in Medication and No Patient answered all questions The History & Physical has been completed within 30 days and I have reviewed it.: No Section B Chief Complaint: Benign prostatic hyperplasia with lower urinary tr Details of Present Illness: Progressive with inability to tolerate medications Relevant Social History: None Present Medications: see Short Stay Collaborative assessment Medical History: No relevant PMH History of Previous Operations: No relevant previous surgery Allergies: Allergies Allergy/AdvReac Type Severity Reaction Status Date / Time doxycycline [DOXYCYCLINE] AdvReac Intermediate HEARTBURN Verified 09/23/22 07:17 Review of Systems Sugical H&P ROS: Negative: Constitution, Cardiovascular, Respiratory, Neurological, Psychiatric, Hem-Onc, Allergic/Immunologic, Gastrointestinal, Genitourinary, Musculoskeletal, Integumentary, Endocrine and Eyes/Ears/Nose/Throat Exam Surgical H&P Exam: Normal: HEENT, Normal: Heart, Normal: Lungs, Normal: Extremities, Normal: Abdomen, Normal: Skin and Normal: Neurological Plan Diagnosis/Plan: Unchanged (GreenLight laser prostatectomy) I have reviewed the history and physical and performed a pertinent physical examination on my patient. No changes have occurred unless specified. Time Spent With Patient Time: Total time managing care of this patient today ____ minutes.
--- NOTE | 2022-09-23 08:47 | PC.NURSE ---
PATIENT STRONGLY DENIES ANY PRIOR HISTORY OF POST OPERATIVE NAUSEA VOMITING. THIS DIAGNOSIS DELETED FROM HIS RECORD. DR. GERONIMO NOTIFIED. NEW ORDER FROM HIM TO DISREGARD PREOP SCOPOLAMINE PATCH CURRENTLY ORDERED.
--- NOTE | 2022-09-23 10:24 | W.PM.OPN ---
Operative Note Operative Note Date of Service: 09/23/22 Narrative: PreOperative Diagnosis: Bladder outlet obstruction Post Operative Diagnosis: Bladder outlet obstruction Procedure: GreenLight Laser Enucleation of the prostate Surgeon: Dr Jim Leal Anesthesia: General Indications for procedure: History of bladder outlet obstruction. Treated with alpha-kinsey and other medications. Still with symptoms. On cystoscopy in office has large median lobe. Recommendation for prostate procedure with laser enucleation of prostate. Risks and benefits have been discussed. Focus was placed on development of retrograde ejaculation which is a normal part of this procedure. Procedure: After informed consent was verified the patient was brought to the operating room and placed in a supine position. Anesthesia was administered per protocol. Patient was placed in modified dorsal lithotomy position and prepped and draped in a sterile fashion. Safety pause time-out was confirmed. Antibiotics have been given. A Twenty-four [place] laser cystoscope was inserted per urethra. No abnormalities were found of the anterior and bulbar urethra. The bladder was examined and both ureteric orifices were seen in their normal positions away from the area of interest. Using a GreenLight laser with settings of 80 w incisions were made at the 5 and 7 o'clock position. The incisions were taken down from the bladder neck down to the level of the veru. These were gradually deepened in order to define the lateral aspects of the median lobe area. Once clearly defined they will also extended in the lateral directions in order to create a deep groove. The median lobe was then ablated and enucleated tissue released into the bladder with the laser power increased to 120 W. Once the median lobe area had been cleared attention was directed to the lateral lobes. Starting with the patient's left lateral lobe. First the 05:00 o'clock groove was further developed. This was moved in the lateral direction to undermine the tissue on the lateral side running from the bladder neck to the prostate apex. Focus was then placed on the laser at the 1 o'clock position to developing a secondary groove down to the level of bladder fibers. The creation of a second deep groove defined a segment of intervening tissue similar to a slice of orange. At the apex of the prostate the 2 grooves were linked the us releasing the intervening tissue. This tissue was then removed with a combination of enucleation and ablation working from the apex toward the bladder neck. A similar procedure was repeated on the patient's right-hand side. The only differences being the position of the lateral groove at he 7 'oclock positioin and the secondary groove at the 11 o'clock position, Otherwise the procedure was developed in a mirror fashion. After the majority of tissue had been debulked remnant tissue was ablated with the side fire laser and the curve of the prostate followed up each side wall clearly defining the anterior remnant strip that remained between the 11 and 1 o'clock positions. When this was had been completed debris and pieces of prostate were removed from the bladder with irrigation. Both ureteric orifices were reviewed again in shown to be patent in away from any areas of energy damage. The apical area was reviewed in any stray ooze was controlled. A 22 [place] 30 cc balloon Mello catheter was placed over a stylet into the bladder. Clear efflux was obtained upopn irrigation with a Nancy piston syringe. 30 cc was placed in the balloon and gentle traction was placed. A snap was used to hold tension on the catheter to control bleeding during patient moved and transported. A drainage bag was placed. Once transportation is complete to the PACU the snap will be removed. The patient tolerated the procedure well, he was extubated in the operating and transferred in a stable condition to the recovery area. Total Power 195 kW Lasing time [] Pathology: Prostate tissue Drains: Mello catheter
[2022-09-23] MEDS: traMADoL HCL 50 MG TABLET PO (10:38)
== END 2022-09-23 12:49 | disposition home or self-care (01) ==
PROVIDERS: PCP Internal Medicine; Visit Provider Urology
PROC: (CPT 52648; principal; 2022-09-23 08:40)
DX: N40.1 Benign prostatic hyperplasia with lower urinary tract symptoms (principal); N32.0 Bladder-neck obstruction; N13.8 Other obstructive and reflux uropathy; R39.12 Poor urinary stream; R35.1 Nocturia; Z85.46 Personal history of malignant neoplasm of prostate; Z80.42 Family history of malignant neoplasm of prostate; Z79.899 Other long term (current) drug therapy; Z88.1 Allergy status to other antibiotic agents; Z87.442 Personal history of urinary calculi; Z86.16 Personal history of COVID-19
CPT/HCPCS: 52649; 88305; J0131; J1100; J1956; J2250; J2405; J3010

== ENCOUNTER → 2022-09-27 08:54 | Outpatient (BNVA) | payer OTHER, SELFPAY | PROVIDERS: PCP Internal Medicine; Visit Provider Urology | DX: N13.8 Other obstructive and reflux uropathy (principal) | CPT/HCPCS: 51700; 51798 ==

== ENCOUNTER 2024-05-25 11:00 | Outpatient (REF) | payer OTHER, SELFPAY ==
[2024-05-25 11:23] LABS: MANUAL DIFF FLAG NO
[2024-05-25 11:55] LABS: Basophils Percent Auto 0.3 % (0-2); Eosinophils Absolute Auto 0.2 X10*3/uL (0.0-0.4); Eosinophils Percent Auto 2.2 % (0-4); Hematocrit 45.5 % (42.0-52.0); Hemoglobin 15.3 g/dl (14.0-18.0); Imm Gran Abs Auto 0.03 X10*3/uL (0.00-0.03); Imm Gran Pct Auto 0.4 % (0.0-0.4); Lymphocytes Absolute Auto 2.4 X10*3/uL (1.2-4.9); Lymphocytes Percent Auto 30.9 % (20-40); Mean Corpuscular HGB Conc 33.6 g/dl (31.0-36.0); Mean Corpuscular Hemoglobin 29.7 pg (27.0-33.0); Mean Corpuscular Volume 88.2 fL (80.0-98.0); Mean Platelet Volume 9.4 fL (9.4-12.4); Monocytes Absolute Auto 0.6 X10*3/uL (0.1-1.2); Monocytes Percent Auto 7.2 % (2-11); Neutrophils Absolute Auto 4.5 x10*3/uL (2.0-8.3); Platelet Count 256 X10*3/uL (160-400); Red Blood Count 5.16 X10*6/uL (4.60-5.80); Red Cell Distribution Width 12.6 % (11.0-16.0); White Blood Count 7.6 X10*3/uL (4.8-10.8)
[2024-05-25 12:43] LABS: Alanine Aminotransferase 29 U/L (0-40); Albumin Level 4.5 g/dL (3.5-5.0); Alkaline Phosphatase 60 U/L (39-117); Anion Gap 12 (12-20); Aspartate Amino Transferase 28 U/L (5-37); Bilirubin Total 0.9 mg/dL (0.0-1.0); Blood Urea Nitrogen 19 mg/dL (9-16); Calcium 9.5 mg/dL (8.4-10.2); Carbon Dioxide 26 mmol/L (22-29); Chloride 106 mmol/L (96-108); Cholesterol 201 mg/dL (<200); Estimated Glomerular Filt Rate > 60; Glucose Random 85 mg/dL (60-115); HDL Cholesterol 49 mg/dL (>40); LDL Cholesterol Calculated 135 mg/dL (<100); Potassium 4.6 mmol/L (3.3-5.1); Sodium 139 mmol/L (135-145); Total Protein 8.2 g/dL (6.5-8.0); Triglycerides 88 mg/dL (<150)
[2024-05-25 13:04] LABS: Prostate Specific Antigen Scr 0.67 ng/mL (<0.05-4.0)
== END 2024-05-25 11:01 | disposition home or self-care (01) ==
LOC: HO.LAB 11:00
PROVIDERS: PCP Internal Medicine; Visit Provider Internal Medicine
DX: Z00.00 Encounter for general adult medical examination without abnormal findings (principal); E78.00 Pure hypercholesterolemia, unspecified; N32.81 Overactive bladder; Z12.5 Encounter for screening for malignant neoplasm of prostate; Z80.42 Family history of malignant neoplasm of prostate
CPT/HCPCS: 36415; 80053; 80061; 84153; 85025